=== PATIENT | female | born 1995 | race Two or more races ===

== ENCOUNTER 2022-02-19 06:09 | Inpatient (IN) | payer MEDICAID, OTHER ==
[~2022-02-19] VITALS: Ht 170.2 cm; Wt 149.7 kg
[2022-02-19] MEDS ORDERED: LIDOCAINE 2%HCL (LOCAL ANESTH.) INJ 10ml MDV ONE (06:23)
[2022-02-19] MEDS ORDERED: NS/OXYTOCIN 20UNITS 1,000 ML IV ONE (06:23)
[2022-02-19] MEDS ORDERED: LIDOCAINE 2%HCL (LOCAL ANESTH.) INJ 10ml MDV IJ PRN (06:30)
[2022-02-19] MEDS ORDERED: WITCH HAZEL-GLYCERIN PAD TOP PRN (06:30)
[2022-02-19] MEDS ORDERED: PENICILLIN G POT 5MIL/D5 50ML 50 ML IV ONE ×2 (06:30→06:31)
[2022-02-19] MEDS ORDERED: PHISODERM TOP SOLN 240ML BTL TOP PRN (06:30)
[2022-02-19] MEDS: LACTATED RINGER'S 1,000 ML IV SCH ×2 (06:30→14:30)
[2022-02-19] MEDS ORDERED: DERMOPLAST 60ML BOTTLE TOP PRN (06:30)
[2022-02-19] MEDS ORDERED: PROMETHAZINE HCL 25 MG/ML 1ML IV PRN (06:30)
[2022-02-19] MEDS ORDERED: BUTORPHANOL TARTRATE 2 MG/1 ML VIAL IV PRN ×2 (06:30)
[2022-02-19] MEDS ORDERED: CARBOPROST TROMETHAMINE 250 MCG/1ML VIAL IM PRN (07:00)
[2022-02-19] MEDS ORDERED: ONDANSETRON HCL 4 MG/2 ML VIAL IV PRN (07:00)
[2022-02-19] MEDS ORDERED: miSOPROStol 100 mcg TAB PR PRN (07:00)
[2022-02-19] MEDS ORDERED: LACT. RINGERS/OXYTOCIN 20UNITS 500 ML IV ONE ×2 (07:00)
[2022-02-19] MEDS ORDERED: miSOPROStol 100 mcg TAB SL PRN (07:00)
[2022-02-19 07:10] LABS: Basophils # (auto) 0.1 10 ^3/uL (0-0.2); Basophils % (auto) 0.5 % (0.0-2.0); Eosinophils # (auto) 0.1 10 ^3/uL (0-0.8); Eosinophils % (auto) 0.6 % (0.0-7.0); Hematocrit 34.5 % (36.0-46.0); Hemoglobin 11.3 g/dL (12.2-16.2); Lymphocytes # (auto) 1.3 10 ^3/uL (0.4-5.4); Lymphocytes % (auto) 11.3 % (10.0-50.0); Mean Corpuscular Hemoglobin 30.1 pg (28.0-32.0); Mean Corpuscular Hgb Conc. 32.8 g/dL (32.0-36.0); Mean Corpuscular Volume 91.7 fL (80.0-100.0); Monocytes # (auto) 1.4 10 ^3/uL (0-1.3); Monocytes % (auto) 12.6 % (0.0-12.0); Neutrophils # (auto) 8.5 10 ^3/uL (1.6-8.6); Red Blood Cells 3.77 10^6/uL (4.0-5.20); Red Cell Distribution Width 13.6 % (11.8-14.3); White Blood Cell 11.3 10^3/uL (4.4-10.8)
[2022-02-19 07:25] LABS: Albumin 2.4 g/dL (3.4-5.0); BUN/Creatinine Ratio 12.7; Calcium 9.2 mg/dL (8.5-10.1); INR 0.92 (0.9-1.15); Partial Thromboplastin Time 28.5 sec (24.6-33.4)
[2022-02-19 07:29] LABS: Bilirubin, Total 0.3 mg/dL (0.2-1.0); Total Protein 6.9 g/dL (6.4-8.2)
[2022-02-19 08:04] LABS: Alcohol, Urine < 3.0 mg/dL (0-10); Amphetamine Screen, Urine POSITIVE (NEGATIVE); Barbiturate Scree,Urine NEGATIVE (NEGATIVE); Benzodiazephine Screen, Urine NEGATIVE (NEGATIVE); Cannabinoid Screen, Urine NEGATIVE (NEGATIVE); Cocaine Screen, Urine NEGATIVE (NEGATIVE); Opiate Scree,Urine NEGATIVE (NEGATIVE); Phencyclidine Screen, Urine NEGATIVE (NEGATIVE)
[2022-02-19 08:07] LABS: Urine Bacteria NONE SEEN /hpf (None Seen); Urine Blood 3+ /uL (Negative); Urine Specific Gravity 1.021 (1.001-1.035); Urine WBC 119 /hpf (0 - 5); Urine WBC Clumps PRESENT /hpf (None Seen)
[2022-02-19] MEDS ORDERED: DIPHENOXYLATE W/ATROPINE 2.5 MG TAB PO SCH (10:00)
[2022-02-19] MEDS ORDERED: PENICILLIN G POTASSIUM 2,500,000 UNITS in D5W 5% 50 ML IV SCH (10:30)
[2022-02-19] MEDS: [UNRECOGNIZED DRUG - REMARK] PO SCH ×2 (10:36→22:17)
[2022-02-19] MEDS: ceFAZolin 1GM/50ML 50 ML IV SCH ×2 (10:52→18:45)
[2022-02-19 12:00] VITALS: BP 130/61
[2022-02-19] MEDS: ACETAMINOPHEN 325 MG TAB PO PRN ×2 (12:04→18:57)
[2022-02-19 14:45] VITALS: BP 141/83
[2022-02-19] MEDS ORDERED: PREN-129 PO (15:33)
[2022-02-19 16:00] VITALS: BP 132/75
[2022-02-19 17:30] VITALS: BP 128/72
[2022-02-19 19:00] VITALS: BP 109/70
[2022-02-19 23:00] VITALS: BP 132/78
[2022-02-20] MEDS: ceFAZolin 1GM/50ML 50 ML IV SCH (02:33)
[2022-02-20 02:50] VITALS: BP 115/71
[2022-02-20 06:43] VITALS: BP 106/60
[2022-02-20 08:06] LABS: RPR Non Reactive (Non Reactive)
[2022-02-21 04:06] LABS: Rubella Antibodies, IgG 8.64 index (Immune >0.99)
== END 2022-02-20 08:00 | disposition home or self-care (01) | DRG 560 ==
LOC: LDRP 06:09 → OBSVTOIN 06:19 → LDRP 06:21
PROVIDERS: ADMIT Obstetrics & Gynecology; ATTEND Obstetrics & Gynecology
PROC: 10E0XZZ Delivery of Products of Conception, External Approach (ICD-10-PCS; principal; 2022-02-19)
PROC: 0KQM0ZZ Repair Perineum Muscle, Open Approach (ICD-10-PCS; 2022-02-19)
PROC: 10907ZC Drainage of Amniotic Fluid, Therapeutic from Products of Conception, Via Natural or Artificial Opening (ICD-10-PCS; 2022-02-19)
DX: O62.3 Precipitate labor (principal); Z37.0 Single live birth; O16.4 Unspecified maternal hypertension, complicating childbirth; Z3A.39 39 weeks gestation of pregnancy; O70.1 Second degree perineal laceration during delivery; O77.0 Labor and delivery complicated by meconium in amniotic fluid; Z20.822 Contact with and (suspected) exposure to COVID-19
CPT/HCPCS: 36415; 59025; 59409; 80053; 80307; 81001; 81002; 85025; 85610; 85730; 86592; 86762; 86850; 86900; 86901; 87340; 94760; 96360; G0378; J0690; J2001; J2540; J2590; J7060